=== PATIENT | male | born 1935 | race Caucasian/White ===

== ENCOUNTER 2018-11-02 04:27 | Emergency (ER) | payer OTHER, MEDICARE ==
[2018-11-02 04:34] VITALS: BP 139/89; PULSE 70; TEMP 98; BMI 21.2
--- NOTE | 2018-11-02 04:44 | PDOC ---
History of Present Illness - General Chief Complaint: Laceration Stated Complaint: LACERATION Time Seen by Provider: 11/02/18 04:42 History Source: Patient Exam Limitations: No Limitations - History of Present Illness Initial Comments: 11/02/18 04:42 83 YOM with PMHx HTN presenting with right eyebrow laceration s/p accidentally walking into the wall in the dark tonight. no LOC or sz/vomiting. no prodromal sx. he sustained 3cm vertical laceration over right eyebrow, +bleeding, but improving with pressure. no visual changes, blurry vision, limitations in eye or brow movements. no AC/asa use. last tetanus unknown 11/02/18 05:26 11/02/18 05:27 Past History - Past Medical History Allergies/Adverse Reactions: Allergies Allergy/AdvReac Type Severity Reaction Status Date / Time No Known Drug Allergies Allergy Verified 05/22/12 15:28 Home Medications: Ambulatory Orders Amlodipine Besylate 10 mg PO DAILY 11/02/18 Lisinopril 20 mg PO DAILY 11/02/18 Anemia: No Asthma: No Cancer: No Cardiac Disorders: No CVA: No COPD: No CHF: No Dementia: No Diabetes: No GI Disorders: No Disorders: No HTN: Yes Hypercholesterolemia: No Liver Disease: No Seizures: No Thyroid Disease: No - Surgical History Abdominal Surgery: No Appendectomy: No Cardiac Surgery: No Cholecystectomy: No Lung Surgery: No Neurologic Surgery: Yes Orthopedic Surgery: No - Suicide/Smoking/Psychosocial Hx Smoking History: Unknown if ever smoked Have you smoked in the past 12 months: No Number of Cigarettes Smoked Daily: 0 Information on smoking cessation initiated: No Hx Alcohol Use: No Drug/Substance Use Hx: No Substance Use Type: None Hx Substance Use Treatment: No Review of Systems - Review of Systems Able to Perform ROS?: Yes Comments:: 11/02/18 05:31 Head: laceration, swelling Eyes: no visual deficits, blurry vision, sensitivity to light or limitations in movement. MUSCULOSKELETAL: No joint pain and swelling. No muscle pain/arthralgias. Back: no back pain SKIN: no redness or skin changes, no discharge, no rash. +laceration to eyebrow , +swelling Hematologic: no easy bruising/bleeding. NEUROLOGIC: No weakness, numbness or tingling. Allergic/Immunologic: no allergies All other systems reviewed and negative, or as documented in HPI. *Physical Exam - Vital Signs Last Vital Signs Temp Pulse Resp BP Pulse Ox 98 F 70 14 139/89 99 11/02/18 04:30 11/02/18 04:30 11/02/18 04:30 11/02/18 04:30 11/02/18 04:30 - Physical Exam Comments: 11/02/18 05:33 General: NAD, well appearing, GCS 15 HEENT: rt medial vertical SQ laceration measuring 3cm, +mild bleeding, +swelling , no tenderness. EOMI, PERRL, able to raise eyebrow, equal and symmetric forehead wrinkling. Vascular: 2+ radialis pulses symmetric and equal. Neuro: CN II-XII grossly intact MSK: JOHNS x4 Skin: color normal color, warm and well perfused. rt medial vertical SQ linear laceration measuring 3cm, well approximated. mild bleeding, nontender. Procedures - Laceration/Wound Repair Right Medial Face Wound Length: 2.6 to 5.0 cm Wound Explored: clean Wound's Depth, Shape: linear Irrigated w/ Saline: Yes Anesthesia: 1% Lidocaine Amount of Anesthetic (ccs): 1 Wound Debrided: minimal Wound Repaired With: Sutures Suture Size/Type: 6:0 Number of Sutures: 7 Layer Closure: No Sterile Dressing Applied: Yes Progress: 11/02/18 05:37 Area prepped and draped in sterile fashion. Anesthetized with lidocaine 1% 1ml. Irrigated with copious irrigation 500cc and explored for foreign body. Sutured with 6-0 sutures x7 with adequate approximation of wound edges. The wound was then covered with bacitracin and sterile gauze. Instructions given to return in 5 days for suture removal in the ED or with their primary care doctor. Medical Decision Making - Medical Decision Making 11/02/18 05:37 83 YOM with HTN presenting with rt eyebrow laceration 3cm, SQ, vertical and linear well approximated, see procedure note tdap up dated no prodromal sx. no sz/AMS/headache/vomiting to suggest traumatic brain injury or G[employer] T[employer]ER bleed, defer imaging at this time. but did give patients close precautions in case of worsening neuro sx over the next 24 hours no benefit of CT imaging at this time, no high risk features to suggest head bleed/injury wound care instructions and care return in 5 days for removal. monitor for s/s infection pt and family verbalized understanding of impression and plan *DC/Admit/Observation/Transfer Diagnosis at time of Disposition: Laceration of eyebrow, left Qualifiers: Encounter type: initial encounter Qualified Code(s): S01.112A - Laceration without foreign body of left eyelid and periocular area, initial encounter - Discharge Dispostion Disposition: HOME Condition at time of disposition: Good Decision to Admit order: No - Referrals - Patient Instructions Printed Discharge Instructions: DI for Laceration Repair, DI for Closed Head Injury Additional Instructions: wound/laceration assessed and repaired, with no complications, bleeding controlled. area cleaned and dried, dressings placed with topical bacitracin. monitor for signs of infection including fevers or chills, redness, streaking, swelling, purulence, malodor. keep dry x 24 hours, then may wash with soap and water 2-3X per day, topical antibiotics such as neosporin. follow up in 5 days for suture removal at urgent or the emergency department. motrin/tylenol for pain control. tetanus is also up to date as of today. you can minimize scar formation with proper cleaning please apply sunblock over the affected area as it heals over the next several days, as the healing process can affect the pigmentation you should also monitor for headache, dizziness, vomiting, neurologic changes, seizure, visual changes or other worsening symptoms that can suggest head injury. at this time you do not need a CT scan - Post Discharge Activity
[2018-11-02] MEDS ORDERED: TETANUS AND DIPHTHERIA TOXOID 0.5 ML DISP.SYRIN IM ONE (05:25)
[2018-11-02] MEDS ORDERED: DIPHTH,PERTUSS(ACELL),TET 0.5 ML DISP.SYRIN IM ONE (05:25)
== END 2018-11-02 05:33 | disposition home or self-care (01) ==
LOC: FER 04:27
PROC: 0HQ1XZZ Repair Face Skin, External Approach (ICD-10-PCS; principal; 2018-11-02)
PROC: 3E0234Z Introduction of Serum, Toxoid and Vaccine into Muscle, Percutaneous Approach (ICD-10-PCS; 2018-11-02)
DX: S01.111A Laceration without foreign body of right eyelid and periocular area, initial encounter (principal); W22.01XA Walked into wall, initial encounter; Y93.01 Activity, walking, marching and hiking; Y92.009 Unspecified place in unspecified non-institutional (private) residence as the place of occurrence of the external cause; I10 Essential (primary) hypertension
CPT/HCPCS: 90715; 99283-25

== ENCOUNTER 2018-11-07 06:29 | Emergency (ER) | payer OTHER, MEDICARE ==
[2018-11-07 06:38] VITALS: BP 132/86; PULSE 71; TEMP 97.7; BMI 20.7
--- NOTE | 2018-11-07 06:41 | PDOC ---
Suture Removal/Wound Check HPI - History of Present Illness Chief Complaint: Suture/Staple Removal (other) Stated Complaint: SUTURE REMOVAL Time Seen by Provider: 11/07/18 06:41 History Source: Yes: Patient Exam Limitations: Yes: No Limitations - Previous ED Treatment Type of procedure performed on last visit: Yes: Laceration Repair Tetanus Immunization: Yes: Up to Date - Onset of Previous Treatment Date of Occurence: 11/02/18 Comment:: 11/07/18 06:49 This is an 83-year-old male who comes in for suture removal. Patient had sutures placed 5 days ago. Laceration was well healed and sutures removed without difficulty. Post suture removal bacitracin and a Band-Aid were placed as her was a small amount of venous oozing from one of the sutures. Past History - Past Medical History Allergies/Adverse Reactions: Allergies Allergy/AdvReac Type Severity Reaction Status Date / Time No Known Drug Allergies Allergy Verified 11/07/18 06:33 Home Medications: Ambulatory Orders Amlodipine Besylate 10 mg PO DAILY 11/02/18 Lisinopril 20 mg PO DAILY 11/02/18 Anemia: No Asthma: No Cancer: No Cardiac Disorders: No CVA: No COPD: No CHF: No Dementia: No Diabetes: No GI Disorders: No Disorders: No HTN: Yes Hypercholesterolemia: No Liver Disease: No Seizures: No Thyroid Disease: No - Surgical History Abdominal Surgery: No Appendectomy: No Cardiac Surgery: No Cholecystectomy: No Lung Surgery: No Neurologic Surgery: Yes Orthopedic Surgery: No - Immunization History Immunization Up to Date: Yes - Suicide/Smoking/Psychosocial Hx Smoking History: Never smoked Have you smoked in the past 12 months: No Number of Cigarettes Smoked Daily: 0 Information on smoking cessation initiated: No Hx Alcohol Use: Yes (OCCAS.) Drug/Substance Use Hx: No Substance Use Type: None Hx Substance Use Treatment: No *Physical Exam - Vital Signs Last Vital Signs Temp Pulse Resp BP Pulse Ox 97.7 F 71 16 132/86 100 11/07/18 06:35 11/07/18 06:35 11/07/18 06:35 11/07/18 06:35 11/07/18 06:35 *DC/Admit/Observation/Transfer Diagnosis at time of Disposition: Visit for suture removal - Discharge Dispostion Disposition: HOME Condition at time of disposition: Stable Decision to Admit order: No - Referrals - Patient Instructions Printed Discharge Instructions: DI for Suture Removal Additional Instructions: Return to the emergency department immediately with ANY new, persistent or worsening symptoms. Continue any medications as previously prescribed by your physician. You should follow up with your primary doctor as soon as possible regarding today's emergency department visit. . Please make sure your doctor reviews the results of your emergency evaluation. Thank you for coming to the Emergency Department today for your care. It was a pleasure to see you today. Please note that your evaluation is INCOMPLETE until you follow-up with your doctor. - Post Discharge Activity
== END 2018-11-07 06:59 | disposition home or self-care (01) ==
LOC: FER 06:29
DX: Z48.02 Encounter for removal of sutures (principal)
CPT/HCPCS: 99281-25

== ENCOUNTER 2021-03-02 09:31 | Emergency (ER) | payer OTHER, MEDICARE ==
[2021-03-02 09:45] VITALS: BP 155/82; PULSE 66; TEMP 98
[2021-03-02 10:23] VITALS: BMI 21.0
[2021-03-02] MEDS ORDERED: IBUPROFEN 600 MG TABLET (FP) PO ONE ×2 (10:43→10:47)
== END 2021-03-02 12:32 | disposition home or self-care (01) ==
LOC: FER 09:31
DX: M25.532 Pain in left wrist (principal)
CPT/HCPCS: 73110-TC-LT-FY; 99283-25

== ENCOUNTER 2021-10-19 12:40 | Emergency (ER) | payer OTHER, MEDICARE ==
[2021-10-19] MEDS ORDERED: predniSONE 20 MG TABLET (UD) PO ONE (12:49)
[2021-10-19 12:58] VITALS: BP 140/64; TEMP 98.3; BMI 18.0
[2021-10-19 12:59] VITALS: PULSE 50
[2021-10-19] MEDS ORDERED: predniSONE 20 MG TABLET (UD) ONE (12:59)
== END 2021-10-19 13:25 | disposition home or self-care (01) ==
LOC: FER 12:40
DX: L25.9 Unspecified contact dermatitis, unspecified cause (principal)
CPT/HCPCS: 99283-25